=== PATIENT | female | born 1965 | race Caucasian/White ===

== ENCOUNTER 2017-02-01 16:25 | Emergency (ER) | payer BC, OTHER ==
[2017-02-01 16:39] VITALS: BP 123/72
--- NOTE | 2017-02-04 19:29 | UC ---
Micah Mireles Alfonso, scribed for Brie Burleson DO on 02/01/17 at 1752 . Knee Pain HPI - HPI Summary HPI Summary: This patient is a 51 year old F presenting to [facility] with a chief complaint of right knee pain since 8 days ago. She states I hurt it walking up 3 stairs and I felt a pull in the back. The patient rates the aching pain 3/10 in severity. Symptoms aggravated by standing. Symptoms alleviated by nothing. Patient reports right knee stiffness, and diaphoresis (chronic). Patient denies right knee popping, right knee giving out, fever, chills, hot flashes, CP, SOB, coughing, headache, and rash. Medications reviewed this visit. - History of Current Complaint Chief Complaint: UCLowerExtremity Stated Complaint: KNEE PAIN Time Seen by Provider: 02/01/17 17:46 Hx Obtained From: Patient Hx Last Menstrual Period: now Onset/Duration: Gradual Onset, Lasting Days - 8, Still Present Severity Currently: Mild Pain Intensity: 3 Pain Scale Used: 0-10 Numeric Character: Aching Aggravating Factor(s): Weight Bearing Alleviating Factor(s): Nothing Associated Signs And Symptoms: Positive: Negative - Allergies/Home Medications Allergies/Adverse Reactions: Allergies Allergy/AdvReac Type Severity Reaction Status Date / Time No Known Allergies Allergy Verified 02/01/17 16:39 PMH/Surg Hx/FS Hx/Imm Hx Previously Healthy: Yes - Surgical History Surgical History: Yes Surgery Procedure, Year, and Place: Right knee. . tubal ligation - Family History Known Family History: Positive: Other - macular degeneration mother - Social History Alcohol Use: Weekly Substance Use Type: None Smoking Status (MU): Current Every Day Smoker Review of Systems Constitutional: Other - diaphoresis (chronic) Genitourinary: Vaginal/Penile Itching Musculoskeletal: Other: - right knee stiffness, right knee pain All Other Systems Reviewed And Are Negative: Yes Physical Exam Triage Information Reviewed: Yes Appearance: Well-Appearing, No Pain Distress, Obese Vital Signs: Initial Vital Signs Temp 98.2 F 02/01/17 16:33 Pulse 89 02/01/17 16:33 Resp 18 02/01/17 16:33 BP 123/72 02/01/17 16:33 Pulse Ox 99 02/01/17 16:33 Vital Signs Reviewed: Yes Eyes: Positive: Conjunctiva Clear. Negative: Discharge ENT: Positive: Hearing grossly normal, Pharynx normal, TMs normal. Negative: Tonsillar swelling, Tonsillar exudate, Trismus, Muffled/hoarse voice Neck: Positive: Supple, Nontender Respiratory: Positive: Chest non-tender, Lungs clear, Normal breath sounds, No respiratory distress Cardiovascular: Positive: RRR, No Murmur Abdomen Description: Positive: Nontender, Soft. Negative: Distended, Guarding Bowel Sounds: Positive: Present Musculoskeletal: Positive: Other: - RLE: Obvious swelling of the RLE from mid- thigh down. Restriction at end ROM at flexion and extension. Mild pain on Patellar grind test. Medial joint line and insertion line of medial collateral ligament tenderness. Test of anterior and posterior ACL PCL ligament deferred at this time. Positive Tre's. Pain with medial stretch. Neurological Exam: Normal Neurological: Positive: Alert, Muscle Tone Normal Psychological Exam: Normal Psychological: Positive: Age Appropriate Behavior Skin Exam: Normal Skin: Positive: Other - Normal, Warm, Dry, Normal color Knee Pain Course/Dx - Course Course Of Treatment: This patient is a 51 year old F presenting to [facility] with a chief complaint of right knee pain since 8 days ago. She states I hurt it walking up 3 stairs and I felt a pull in the back. The patient rates the aching pain 3/10 in severity. Symptoms aggravated by standing. Symptoms alleviated by nothing. Patient reports right knee stiffness, and diaphoresis ( chronic). Patient denies right knee popping, right knee giving out, fever, chills, hot flashes, CP, SOB, coughing, headache, and rash. Medications reviewed this visit. The patient has been encouraged to quit smoking. Patient will be go to the ED immediately with follow up from ED physician. The patient is agreeable with this plan. - Differential Dx/Diagnosis Differential Diagnosis/HQI/PQRI: DVT, Sprain Provider Diagnoses: edema, knee pain Discharge - Discharge Plan Condition: Stable Disposition: HOME Patient Education Materials: Knee Sprain (ED), Deep Venous Thrombosis (ED) Referrals: Esther Wyatt MD [Medical Doctor] - (follow up in 3-5 days) Landon Mac MD [Primary Care Provider] - If Needed Additional Instructions: Your history and exam is suspicous for possible internal derrangement of the knee. So, you will need follow up with an orthopedic provider to further evaluate your injury. HOWEVER, DISCUSSED, YOUR EXAM ALSO REVEALS SWELLING OF THE WHO RIGHT LOWER EXTREMITY. THIS RAISES CONCERN FOR A BLOOD CLOT. IT IS VERY IMPORTANT THAT YOU GO TO THE EMERGENCY DEPARTMENT IMMEDIATELY TO RULE OUT THIS POSSIBILITY A BLOOD CLOT CAN RESULT AIMEE PULMONARY EMBOLISM( A CLOT IN THE LUNGS.) THIS CONDITION CAN CAUSE RESPIRATORY DISTRESS, RESPIRATORY ARREST AND . SO PLEASE GO TO THE ED IMMEDIATELY FOR FURTHER EVALUATION AND TREATMENT. The documentation as recorded by the Micah man Alfonso accurately reflects the service I personally performed and the decisions made by , Brie Burleson DO.
== END 2017-02-01 18:24 | disposition home or self-care (01) ==
LOC: UCEAST 16:25
DX: R60.9 Edema, unspecified (principal); M25.561 Pain in right knee; F17.210 Nicotine dependence, cigarettes, uncomplicated; E66.9 Obesity, unspecified
CPT/HCPCS: 99202; G0463

== ENCOUNTER → 2017-02-01 18:44 | Emergency (ER) | payer BC ==
--- NOTE | 2017-02-01 20:44 | RAD ---
Indication: Right knee pain. Duplex Doppler sonography of the deep venous system of the right lower extremity deep venous system was performed. Bilaterally the common femoral veins appear patent and compressible. Right proximal greater saphenous vein, proximal deep femoral vein, femoral vein, popliteal vein, posterior tibial veins and peroneal veins appear patent and compressible. IMPRESSION: NO EVIDENCE OF DEEP VENOUS THROMBOSIS IS IDENTIFIED.
[2017-02-01 22:46] VITALS: BP 127/72
--- NOTE | 2017-02-02 01:13 | ED ---
Jordyn Mireles Thomas, scribed for Ricardo Squires on 02/01/17 at 2238 . Lower Extremity - HPI Summary HPI Summary: The pt is a 51 y/o F referred from E and c/o R knee pain that began a week ago. The pain is described as an ache. The pain is rated 5/10. The pain is aggravated by movement and palpation. It is alleviated by nothing. 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 Pt additionally c/o R knee swelling. Pt denies SOB and CP. She is previously healthy and takes no medications. The patient was referred from urgent care to rule out a DVT. - History of Current Complaint Chief Complaint: EDExtremityLower Stated Complaint: RT LEG SWELLING-SENT FROM [facility] Time Seen by Provider: 02/01/17 21:41 Hx Obtained From: Patient Hx Last Menstrual Period: now Onset of Pain: Days - onset of pain a week ago Onset/Duration: Still Present Severity Currently: Moderate Pain Intensity: 5 Pain Scale Used: 0-10 Numeric Timing: Constant Location: Is Discrete @ - R knee Associated Signs And Symptoms: Positive: Swelling - to R knee. Negative: Other - NEGATIVE: SOB, CP Aggravating Factor(s): Movement, Other - Palpation Alleviating Factor(s): Nothing Able to Bear Weight: No - Allergies/Home Medications Allergies/Adverse Reactions: Allergies Allergy/AdvReac Type Severity Reaction Status Date / Time No Known Allergies Allergy Verified 02/01/17 16:39 PMH/Surg Hx/FS Hx/Imm Hx Previously Healthy: No Endocrine/Hematology History: Denies: Hx Diabetes, Hx Thyroid Disease Cardiovascular History: Denies: Hx Hypertension Respiratory History: Denies: Hx Asthma, Hx Chronic Obstructive Pulmonary Disease (COPD) GI History: Denies: Hx Ulcer - Surgical History Surgery Procedure, Year, and Place: Right knee. . tubal ligation Infectious Disease History: No Infectious Disease History: Denies: Hx Clostridium Difficile, Hx Hepatitis, Hx Human Immunodeficiency Virus (HIV), Hx of Known/Suspected MRSA, Hx Shingles, Hx Tuberculosis, Hx Known/ Suspected VRE, Hx Known/Suspected VRSA, History Other Infectious Disease, Traveled Outside the [place] in Last 30 Days - Family History Known Family History: Positive: Other - When asked, the patient responds "nothing" - Social History Alcohol Use: Weekly Hx Substance Use: No Substance Use Type: Reports: None Hx Tobacco Use: Yes Smoking Status (MU): Current Every Day Smoker Review of Systems All Other Systems Reviewed And Are Negative: Yes Physical Exam - Summary Physical Exam Summary: Appearance: Well appearing, no pain distress. Skin: Warm, dry, reflects adequate perfusion. Head/face: Normal. Eyes: EOMI, DONA. ENT: Normal. Neck: Supple, nontender. Respiratory: CTA, breath sounds present. Cardiovascular: RRR, pulses symmetrical. Abdomen: Nontender, soft. Bowel: Present. Musculoskeletal: Strength/ROM intact. She has tenderness over her right knee. Neuro: Normal, sensory motor intact, A&Ox3. Triage Information Reviewed: Yes Vital Signs On Initial Exam: Initial Vitals Temp Pulse Resp BP Pulse Ox 98.3 F 78 17 136/80 99 02/01/17 18:58 02/01/17 18:58 02/01/17 18:58 02/01/17 18:58 02/01/17 18:58 Vital Signs Reviewed: Yes - Azul Coma Scale Coma Scale Total: 15 Diagnostics - Vital Signs Vital Signs Temp Pulse Resp BP Pulse Ox 02/01/17 20:55 97.8 F 69 14 155/77 100 02/01/17 18:58 98.3 F 78 17 136/80 99 - Laboratory Lab Statement: Any lab studies that have been ordered have been reviewed, and results considered in the medical decision making process. - Radiology Knee XR Xray Interpretation: No Acute Changes - No fracture noted. Radiology Interpretation Completed By: ED Physician - Additional Comments Diagnostic Additional Comments: US RLE. Interpreted by radiologist. Impression: No evidence for DVT is identified. ED physician has reviewed this report and agrees. Lower Extremity Course/Dx - Course Assessment/Plan: The patient is referred from [facility] to rule out DVT for right knee pain. Ultrasound was negative for DVT. XR Knee is negative for fracture. Patient discharged with orthopedics follow up. - Diagnoses Provider Diagnoses: Knee sprain Discharge - Discharge Plan Condition: Stable Disposition: HOME Patient Education Materials: Knee Sprain (ED) Referrals: Landon Mac MD [Primary Care Provider] - If Needed Mario Ramirez DO [Medical Doctor] - 3 Days Additional Instructions: Follow up with Dr. Ramirez, orthopedics, in the next three days. Return to the emergency room for any new or worsening symptoms. The documentation as recorded by the scribeJordyn Thomas accurately reflects the service I personally performed and the decisions made by me, Ricardo Squires.
--- NOTE | 2017-02-02 07:27 | RAD ---
INDICATION: Right knee pain. TECHNIQUE: 4 views of the right knee were obtained. FINDINGS: The bones are in normal alignment. No joint effusion or fracture is seen. There is mild to moderate osteoarthritic change in the medial compartment. IMPRESSION: MILD TO MODERATE OSTEOARTHRITIC CHANGE.
== END | disposition home or self-care (01) ==
LOC: ED 18:44
DX: S83.91XA Sprain of unspecified site of right knee, initial encounter (principal); R22.9 Localized swelling, mass and lump, unspecified; F17.210 Nicotine dependence, cigarettes, uncomplicated; X58.XXXA Exposure to other specified factors, initial encounter; Y93.9 Activity, unspecified; Y92.9 Unspecified place or not applicable
CPT/HCPCS: 99282